=== PATIENT | male | born 1960 | race American Indian/Alaskan Native ===

== ENCOUNTER 2019-12-29 02:11 | Inpatient (IN) | payer BC, MEDICARE ==
--- NOTE | 2019-12-29 08:25 | History and Physical Report ---
GP History & Physical - History of Present Illness Date of admission: 12/29/19 Date of Examination: 12/29/19 Reason for Admission: Danger to self, Severe anxiety/depression History of Present Illness: HPI Patient is a 59-year-old with children, unemployed currently on disability income -[place] male who lives with and has past psychiatric history of MDD and bipolar and past medical history of hypertension diabetes and obstructive sleep apnea who was admitted to the facility due to major depression after a recent drug relapse. Patient reportedly has a history of drug use specifically cocaine and marijuana and has been drug-free for 3 years recently which has been controlled Arnielis started smoking marijuana and from there he was desiring for something stronger so he left home rented a hotel room so that he could use drugs in a private space and he just could not stop prompting him to call 911 requesting to be brought to the hospital for evaluation. Patient says he does not have any financial, marital major life stress issues that prompted him to start using drugs again but was mostly because he had been saving and has had a lot of money laying around that he did not know what to do with it. Now patient endorses feeling sad guilty and depressed about his actions with intermittent suicidal ideations but none at this moment and also denies auditory or visual hallucinations. PAST PSYCHIATRIC HISTORY: Diagnoses: MDD and bipolar Suicide attempts or Self-harm behavior: Yes Prior psychiatric hospitalizations yes Substance Abuse history: Cocaine and marijuana Previous psychiatric medications tried: Yes Outpatient treatment: None reported PAST MEDICAL HISTORY: Hypertension, diabetes and YONATHAN Family Psychiatric History: None reported or documented SOCIAL HISTORY Marital Status: Living Arrangements: With Employment Status: On SSI Access to guns/weapons: None reported Education: High school History of Abuse: None reported Legal History: None reported REVIEW OF SYSTEMS Constitutional: Negative for weight loss ENT: Negative for stridor Respiratory: Negative for cough or hemoptysis All other systems reviewed and are negative MENTAL STATUS EXAMINATION General Appearance and Behavior: Age appropriate, good hygiene, wearing appropriate clothes,, good eye contact Cooperation: Participating/engaged, but Guarded Psychomotor Behavior: Psychomotor normal Mood: depressed Affect and affective range: irritable, labile Thought Process: illogical Thought Content: denies, hopelessness, helplessness Speech: Normal rate, volume and rythm Intellectual Functioning: Average Suicidal Ideation: Denies Homicidal Ideation: Denies HI Impulse Control: Impaired Insight and Judgment: Limited insight and judgment Memory: Normal Attention: Normal Orientation: Alert, Diagnoses: Assessment and Plan - Psychiatric problem (1) Substance induced mood disorder Current Visit: Yes Status: Acute (2) Bipolar II disorder with melancholic features Current Visit: Yes Status: Acute Treatment Plan Patient admitted for inpatient psychiatric evaluation, medication adjustment and close monitoring The patient's behavior, mood, sleep and appetite will be closely monitored. Patient enrolled in individual and group therapeutic sessions and encouraged to attend. Patient provided with a safe and structured environment. Patient's physical health needs will be addressed by the Hospitalist. Hospitalist Consulted Labs including CBC, CMP, Lipid profile and Hemoglobin A1C levels ordered for baseline reference Social Assessment will be completed and the Demand Manager will work with patient and family to ensure a suitable and safe disposition Medication adjustment will be made as clinically indicated Usual Wellness Zoroastrian/Preservation: - Start Trazodone 50 mg po QHS & 50 mg po QHS PRN between 10 PM & 2 AM for insomnia - Start Melatonin 5 mg po QHS to promote circadian rhythm - Start Laurel-3 for brain health, reduce impulsivity, and as adjunctive treatment for mood disorder, continue upon discharge given overall benefits. - Start B1 prophylaxis with 200 mg po for 5 days The patient agreed on the treatment plan, understood the risk, benefit, alternative treatment, potential consequence of no treatment, and gave informed consent. Initial Certification Inpatient psych services: I certify that the inpatient psychiatric services are required for treatment that could reasonably be expected to improve the patient's condition. Estimated days: 7 Post hospital care: primary care provider, psychiatric provider Legal Status: Voluntary Patient Problems: Current Active Problems Bipolar II disorder with melancholic features (Acute) Substance induced mood disorder (Acute) Reaction to Hospitalization: Accepting Medications and Allergies Allergies Allergy/AdvReac Type Severity Reaction Status Date / Time risperidone [From Risperdal] AdvReac Severe Unknown Verified 12/29/19 02:21 Home Medications Medication Instructions Recorded Confirmed Last Taken Type AtorvaSTATin 10 mg PO DAILY 12/29/19 12/29/19 Unknown History Gabapentin 300 mg PO TID 12/29/19 12/29/19 Unknown History Glimepiride 1 mg PO AC 12/29/19 12/29/19 Unknown History Hydrocodone-Homatropine 5-1.5 7.5 - 325 mg PO Q6H PRN 12/29/19 12/29/19 Unknown History Losartan 25 mg PO DAILY 12/29/19 12/29/19 Unknown History Melatonin 10 mg PO HS 12/29/19 12/29/19 Unknown History Remeron 15mg TAB 15 mg PO DAILY 12/29/19 12/29/19 Unknown History Tadalafil 20 mg PO DAILY 12/29/19 12/29/19 Unknown History amLODIPine 10 mg PO DAILY 12/29/19 12/29/19 Unknown History metFORMIN 500 mg PO BID 12/29/19 12/29/19 Unknown History Results - Results Labs/Vitals: Laboratory Last Values POC Glucose 143 mg/dL (70-105) H 12/29/19 06:29 Last Vital Signs Temp 98.7 F 12/29/19 06:20 Pulse 78 12/29/19 06:20 Resp 18 12/29/19 06:20 BP 133/91 12/29/19 06:20 Pulse Ox 97 12/29/19 06:20 Physical Examination - Constitutional Vitals: Vital Signs Temp Pulse Resp BP Pulse Ox 98.7 F 78 18 133/91 97 12/29/19 06:20 12/29/19 06:20 12/29/19 06:20 12/29/19 06:20 12/29/19 06:20 Temperature -Last 24 Hours Temperature 98.7 F Mental Status Exam - Vital signs Last Vital Signs Temp 98.7 F 12/29/19 06:20 Pulse 78 12/29/19 06:20 Resp 18 12/29/19 06:20 BP 133/91 12/29/19 06:20 Pulse Ox 97 12/29/19 06:20 Assessment and Plan - Psychiatric problem (1) Substance induced mood disorder Current Visit: Yes Status: Acute (2) Bipolar II disorder with melancholic features Current Visit: Yes Status: Acute Physician Certification - Certification Statement Physician Certification Statement: This is an acknowledgement statement that ALEIDA SMITH is a 59 year old M who requires inpatient psychiatric admission for treatment which could reasonably be expected to improve the patient's condition for Estimated period of time patient will need to remain in the hospital: [ ] Plan for post-hospital care: [ ]
[2019-12-29] MEDS ORDERED: NON-FORMULARY EACH (Amlodipine 10 MG) PO SCH (10:00)
[2019-12-29] MEDS ORDERED: REMERON 15 MG PO SCH (10:00)
[2019-12-29 10:45] LABS: Basophils # (Auto) 0.1 K/mm3 (0.0-0.1); Basophils % (Auto) 2.2 % (0.0-1.8); Eosinophils % (Auto) 0.3 % (0.0-4.3); Hematocrit 36.8 % (35.5-45.6); Hemoglobin 12.1 gm/dl (11.8-15.2); Lymphocytes # (Auto) 1.7 K/mm3 (1.2-5.4); Lymphocytes % (Auto) 29.3 % (13.4-35.0); Mean Corpuscular HGB Conc 33 % (32-34); Mean Corpuscular Volume 78 fl (84-94); Monocytes # (Auto) 0.3 K/mm3 (0.0-0.8); Monocytes % (Auto) 5.6 % (0.0-7.3); Platelet Count 240 K/mm3 (140-440); Red Blood Count 4.72 M/mm3 (3.65-5.03); Red Cell Distribution Width 17.1 % (13.2-15.2)
[2019-12-29] MEDS: DULoxetine 30 MG CAP PO SCH (10:53)
[2019-12-29 10:58] LABS: BUN/Creatinine Ratio 14; Blood Urea Nitrogen 14 mg/dL (9-20); Calcium 9.2 mg/dL (8.4-10.2); Chol/HDL Ratio 2.31 %; HDL Cholesterol 63 mg/dL (40-59); Hemolysis Index 15; LDL Cholesterol,Direct 69 mg/dL (50-130)
[2019-12-29] MEDS ORDERED: MIRTAZAPINE 15 MG TAB PO SCH (11:00)
[2019-12-29] MEDS ORDERED: NON-FORMULARY EACH (Metformin 500 MG) PO SCH (14:48)
--- NOTE | 2019-12-29 14:51 | Consultation ---
History of Present Illness - Reason for Consult Consult date: 12/29/19 Medical management Requesting physician: JOAN BLACK - History of Present Illness 59 YO Male with Obesity Hypoventilation Syndrome, DM, HTN, YONATHAN, PSA, Bipolar Disorder admitted to [facility] for Psychiatric stabilization. Consult placed by Dr. Black for medical management. Patient seen and evaluated in the recreation room. Patient sitting in chair and resting comfortably. Patient de nies fever, chills, chest pain, palpitation, productive cough, skin rash, recent ill contact, or known exposure to COVID-19. Past History Past Medical History: diabetes, hypertension, other (See HPI) Past Surgical History: No surgical history, Other (Reviewed) Social history: , lives with family, other (Polysubstance abuse) Family history: diabetes, hypertension Medications and Allergies Allergies Allergy/AdvReac Type Severity Reaction Status Date / Time risperidone [From Risperdal] AdvReac Severe Unknown Verified 12/29/19 02:21 Home Medications Medication Instructions Recorded Confirmed Last Taken Type AtorvaSTATin 10 mg PO DAILY 12/29/19 12/29/19 Unknown History Gabapentin 300 mg PO TID 12/29/19 12/29/19 Unknown History Glimepiride 1 mg PO AC 12/29/19 12/29/19 Unknown History Hydrocodone-Homatropine 5-1.5 7.5 - 325 mg PO Q6H PRN 12/29/19 12/29/19 Unknown History Losartan 25 mg PO DAILY 12/29/19 12/29/19 Unknown History Melatonin 10 mg PO HS 12/29/19 12/29/19 Unknown History Remeron 15mg TAB 15 mg PO DAILY 12/29/19 12/29/19 Unknown History Tadalafil 20 mg PO DAILY 12/29/19 12/29/19 Unknown History amLODIPine 10 mg PO DAILY 12/29/19 12/29/19 Unknown History metFORMIN 500 mg PO BID 12/29/19 12/29/19 Unknown History Active Meds: Active Medications Duloxetine HCl (Cymbalta) 30 mg PO QDAY [facility] Last Admin: 12/29/19 10:53 Dose: 30 mg Documented by: Melatonin (Melatonin) 10 mg PO QHS [facility] Mirtazapine (Remeron) 15 mg PO HS [facility] Miscellaneous Medication (Amlodipine) 10 mg PO DAILY [facility] Miscellaneous Medication (Metformin) 500 mg PO BID [facility] Miscellaneous Medication (Losartan) 25 mg PO DAILY [facility] Miscellaneous Medication (Glimepiride) 1 mg PO AC [facility] Miscellaneous Medication (Gabapentin) 300 mg PO TID [facility] Miscellaneous Medication (Atorvastatin) 10 mg PO DAILY [facility] Review of Systems Constitutional: no weight loss, no weight gain, no fever, no chills Ears, nose, mouth and throat: no ear pain, no ear discharge, no tinnitis, no decreased hearing Respiratory: no cough, no cough with sputum, no hemoptysis, no shortness of breath, no dyspnea on exertion Gastrointestinal: no nausea, no vomiting, no diarrhea, no constipation Genitourinary Male: no hematuria, no flank pain, no discharge, no urinary frequency Rectal: no pain, no incontinence, no bleeding Musculoskeletal: no neck stiffness, no neck pain, no shooting leg pain, no leg numbness/tingling Integumentary: no rash, no pruritis, no redness, no sores, no wounds Neurological: no transient paralysis, no paralysis, no parathesias, no numbness, no tingling, no seizures, no tremors Psychiatric: suicidal ideation, depression Endocrine: no cold intolerance, no polyphagia, no polyuria Hematologic/Lymphatic: no easy bruising, no easy bleeding, no lymphedema Allergic/Immunologic: no urticaria, no angioedema Exam - Constitutional Vitals: Temp Pulse Resp BP Pulse Ox 98.3 F 71 18 128/77 98 12/29/19 07:23 12/29/19 07:23 12/29/19 07:23 12/29/19 07:23 12/29/19 07:23 General appearance: Present: no acute distress, obese - EENT Eyes: Present: PERRL ENT: hearing intact, clear oral mucosa - Neck Neck: Present: supple, normal ROM - Respiratory Respiratory effort: normal Respiratory: bilateral: CTA - Cardiovascular Heart Sounds: Present: S1 & S2. Absent: rub, click - Extremities Extremities: pulses symmetrical, No edema Peripheral Pulses: within normal limits - Abdominal General gastrointestinal: Present: soft, non-tender, non-distended, normal bowel sounds Male genitourinary: Present: normal - Integumentary Integumentary: Present: clear, warm, dry - Musculoskeletal Musculoskeletal: gait normal, strength equal bilaterally - Psychiatric Psychiatric: appropriate mood/affect, intact judgment & insight - Neurologic Neurologic: CNII-XII intact, moves all extremities Results - Labs CBC & Chem 7: 12/29/19 09:38 12/29/19 09:38 Labs: Abnormal lab results 12/29/19 12/29/19 12/29/19 Range/Units 06:29 09:38 09:38 MCV 78 L (84-94) fl MCH 26 L (28-32) pg RDW 17.1 H (13.2-15.2) % Baso % (Auto) 2.2 H (0.0-1.8) % Sodium 136 L (137-145) mmol/L Glucose 185 H (75-100) mg/dL POC Glucose 143 H (70-105) mg/dL Hemoglobin A1c (4-6) % HDL Cholesterol 63 H (40-59) mg/dL 12/29/19 12/29/19 Range/Units 09:38 11:58 MCV (84-94) fl MCH (28-32) pg RDW (13.2-15.2) % Baso % (Auto) (0.0-1.8) % Sodium (137-145) mmol/L Glucose (75-100) mg/dL POC Glucose 131 H (70-105) mg/dL Hemoglobin A1c 7.8 H (4-6) % HDL Cholesterol (40-59) mg/dL Assessment and Plan - Patient Problems (1) Hypertension Current Visit: Yes Status: Acute Qualifiers: Hypertension type: essential hypertension Qualified Code(s): I10 - Essential (primary) hypertension Plan to address problem: Monitor blood pressure every shift, continue medical management. (2) Diabetes Current Visit: Yes Status: Acute Plan to address problem: Consistent carbohydrate diet, oral antihyperglycemic therapy, supportive care, continue medical management. (3) Obesity hypoventilation syndrome Current Visit: Yes Status: Acute Plan to address problem: Balanced diet, increase physical activity at discharge, outpatient pulmonary part of follow-up for sleep study. (4) Bipolar II disorder with melancholic features Current Visit: Yes Status: Acute Plan to address problem: Continue medical management as per primary team (5) Substance induced mood disorder Current Visit: Yes Status: Acute Plan to address problem: Continue medical management as per primary team.
[2019-12-29] MEDS ORDERED: GLIMEPIRIDE 1 MG PO SCH (16:30)
[2019-12-29] MEDS: metFORMIN 500 MG TAB PO SCH (16:57)
[2019-12-29] MEDS ORDERED: NON-FORMULARY EACH (Gabapentin 300 MG) PO SCH (20:00)
[2019-12-29] MEDS: MELATONIN 5 MG TAB PO SCH (21:10)
[2019-12-29] MEDS: MIRTAZAPINE 15 MG TAB PO SCH (21:10)
[2019-12-29] MEDS: GABAPENTIN 300 MG CAP PO SCH (21:10)
[2019-12-29] MEDS ORDERED: NON-FORMULARY EACH (Melatonin 10 MG) PO SCH (22:00)
[2019-12-30] MEDS: GABAPENTIN 300 MG CAP PO SCH ×3 (06:22→21:21)
[2019-12-30] MEDS: metFORMIN 500 MG TAB PO SCH ×2 (08:10→17:32)
[2019-12-30] MEDS: GLIMEPIRIDE 2 MG TAB PO SCH (08:11)
--- NOTE | 2019-12-30 08:38 | Progress Note ---
Subjective Date of service: 12/30/19 Principal diagnosis: Bipolar II disorder with melancholic features Subjective Comment: Psych Nurse: Patient spent most of the evening in the activity room but he was asleep in the recliner. He presents as sad and depressed. He had no interaction with anyone. He did eat 100% of his snack and was medication compliant. Patient went to bed early. Will continue to monitor patient for safety. Psych Progress Patient reports sleeping well, says his appetite is getting better and today he describes his mood as "unbalanced" because he is having depressive episodes and then thinking about what would happen if he gets out of here because of how he has messed up his fiances and mismanaged it due to drug use. Reason for continuing inpatient hospitalization: Persistent mood disturbances and depression, patient says SI thoughts are intermittents at this time without any plan. REVIEW OF SYSTEMS Constitutional: Negative for weight loss ENT: Negative for stridor Respiratory: Negative for cough or hemoptysis All other systems reviewed and are negative MENTAL STATUS EXAMINATION General Appearance and Behavior: Age appropriate, good hygiene, wearing appropr iate clothes,, good eye contact Cooperation: Participating/engaged, but Guarded Psychomotor Behavior: Psychomotor normal Mood: depressed Affect and affective range: irritable, labile Thought Process: illogical Thought Content: denies, hopelessness, helplessness Speech: Normal rate, volume and rythm Intellectual Functioning: Average Suicidal Ideation: Intermittent SI Homicidal Ideation: Denies HI Impulse Control: Impaired Insight and Judgment: Limited insight and judgment Memory: Normal Attention: Normal Orientation: Alert, Diagnoses: Assessment and Plan - Psychiatric problem (1) Substance induced mood disorder Current Visit: Yes Status: Acute (2) Bipolar II disorder with melancholic features Current Visit: Yes Status: Acute Treatment Plan Home medications restarted. Patient admitted for inpatient psychiatric evaluation, medication adjustment and close monitoring The patient's behavior, mood, sleep and appetite will be closely monitored. Patient enrolled in individual and group therapeutic sessions and encouraged to attend. Patient provided with a safe and structured environment. Patient's physical health needs will be addressed by the Hospitalist. Hospitalist Consulted Labs including CBC, CMP, Lipid profile and Hemoglobin A1C levels ordered for baseline reference Social Assessment will be completed and the Strategic Planning Director will work with patient and family to ensure a suitable and safe disposition Medication adjustment will be made as clinically indicated Usual Wellness Adventism/Preservation: - Start Trazodone 50 mg po QHS & 50 mg po QHS PRN between 10 PM & 2 AM for insomnia - Start Melatonin 5 mg po QHS to promote circadian rhythm - Start [place]-3 for brain health, reduce impulsivity, and as adjunctive treatment for mood disorder, continue upon discharge given overall benefits. - Start B1 prophylaxis with 200 mg po for 5 days The patient agreed on the treatment plan, understood the risk, benefit, alternative treatment, potential consequence of no treatment, and gave informed consent. Initial Certification Inpatient psych services: I certify that the inpatient psychiatric services are required for treatment that could reasonably be expected to improve the patient's condition. Estimated days: 6 Post hospital care: primary care provider, psychiatric provider Assessment and Plan - Patient Problems (1) Substance induced mood disorder Current Visit: Yes Status: Acute (2) Bipolar II disorder with melancholic features Current Visit: Yes Status: Acute Medications and Allergies Allergies Allergy/AdvReac Type Severity Reaction Status Date / Time risperidone [From Risperdal] AdvReac Severe Unknown Verified 12/29/19 02:21 Home Medications Medication Instructions Recorded Confirmed Last Taken Type AtorvaSTATin 10 mg PO DAILY 12/29/19 12/29/19 Unknown History Gabapentin 300 mg PO TID 12/29/19 12/29/19 Unknown History Glimepiride 1 mg PO AC 12/29/19 12/29/19 Unknown History Hydrocodone-Homatropine 5-1.5 7.5 - 325 mg PO Q6H PRN 12/29/19 12/29/19 Unknown History Losartan 25 mg PO DAILY 12/29/19 12/29/19 Unknown History Melatonin 10 mg PO HS 12/29/19 12/29/19 Unknown History Remeron 15mg TAB 15 mg PO DAILY 12/29/19 12/29/19 Unknown History Tadalafil 20 mg PO DAILY 12/29/19 12/29/19 Unknown History amLODIPine 10 mg PO DAILY 12/29/19 12/29/19 Unknown History metFORMIN 500 mg PO BID 12/29/19 12/29/19 Unknown History Active Meds: Active Medications Amlodipine Besylate (Amlodipine) 10 mg PO DAILY [facility] Atorvastatin Calcium (Atorvastatin) 10 mg PO QHS [facility] Last Admin: 12/29/19 21:10 Dose: 10 mg Documented by: Duloxetine HCl (Cymbalta) 30 mg PO QDAY [facility] Last Admin: 12/29/19 10:53 Dose: 30 mg Documented by: Gabapentin (Gabapentin) 300 mg PO Q8HR [facility] Last Admin: 12/30/19 06:22 Dose: 300 mg Documented by: Glimepiride (Amaryl) 1 mg PO QDDIAB [facility] Losartan Potassium (Cozaar) 25 mg PO QDAY [facility] Melatonin (Melatonin) 10 mg PO QHS [facility] Last Admin: 12/29/19 21:10 Dose: 10 mg Documented by: Metformin HCl (Glucophage) 500 mg PO BIDDIAB [facility] Last Admin: 12/29/19 16:57 Dose: 500 mg Documented by: Mirtazapine (Remeron) 15 mg PO HS [facility] Last Admin: 12/29/19 21:10 Dose: 15 mg Documented by: Results - Results Labs/Vitals: Laboratory Last Values WBC 5.9 K/mm3 (4.5-11.0) 12/29/19 09:38 RBC 4.72 M/mm3 (3.65-5.03) 12/29/19 09:38 Hgb 12.1 gm/dl (11.8-15.2) 12/29/19 09:38 Hct 36.8 % (35.5-45.6) 12/29/19 09:38 MCV 78 fl (84-94) L 12/29/19 09:38 MCH 26 pg (28-32) L 12/29/19 09:38 MCHC 33 % (32-34) 12/29/19 09:38 RDW 17.1 % (13.2-15.2) H 12/29/19 09:38 Plt Count 240 K/mm3 (140-440) 12/29/19 09:38 Lymph % (Auto) 29.3 % (13.4-35.0) 12/29/19 09:38 Craig % (Auto) 5.6 % (0.0-7.3) 12/29/19 09:38 Eos % (Auto) 0.3 % (0.0-4.3) 12/29/19 09:38 Baso % (Auto) 2.2 % (0.0-1.8) H 12/29/19 09:38 Lymph # (Auto) 1.7 K/mm3 (1.2-5.4) 12/29/19 09:38 Craig # (Auto) 0.3 K/mm3 (0.0-0.8) 12/29/19 09:38 Eos # (Auto) 0.0 K/mm3 (0.0-0.4) 12/29/19 09:38 Baso # (Auto) 0.1 K/mm3 (0.0-0.1) 12/29/19 09:38 Seg Neutrophils % 62.6 % (40.0-70.0) 12/29/19 09:38 Seg Neutrophils # 3.7 K/mm3 (1.8-7.7) 12/29/19 09:38 Sodium 136 mmol/L (137-145) L 12/29/19 09:38 Potassium 4.2 mmol/L (3.6-5.0) 12/29/19 09:38 Chloride 99.7 mmol/L (98-107) 12/29/19 09:38 Carbon Dioxide 29 mmol/L (22-30) 12/29/19 09:38 Anion Gap 12 mmol/L 12/29/19 09:38 BUN 14 mg/dL (9-20) 12/29/19 09:38 Creatinine 1.0 mg/dL (0.8-1.3) 12/29/19 09:38 Estimated GFR > 60 ml/min 12/29/19 09:38 BUN/Creatinine Ratio 14 % 12/29/19 09:38 Glucose 185 mg/dL (75-100) H 12/29/19 09:38 POC Glucose 168 mg/dL (70-105) H 12/30/19 07:36 Hemoglobin A1c 7.8 % (4-6) H 12/29/19 09:38 Calcium 9.2 mg/dL (8.4-10.2) 12/29/19 09:38 Triglycerides 63 mg/dL (2-149) 12/29/19 09:38 Cholesterol 146 mg/dL (50-199) 12/29/19 09:38 LDL Cholesterol Direct 69 mg/dL (50-130) 12/29/19 09:38 HDL Cholesterol 63 mg/dL (40-59) H 12/29/19 09:38 Cholesterol/HDL Ratio 2.31 % 12/29/19 09:38 TSH 0.594 mlU/mL (0.270-4.200) 12/29/19 09:38 Last Vital Signs Temp 98.2 F 12/30/19 07:21 Pulse 70 12/30/19 07:21 Resp 18 12/30/19 07:21 BP 136/86 12/30/19 07:21 Pulse Ox 94 12/30/19 07:21
[2019-12-30] MEDS: amLODIPine 10 MG TAB PO SCH (09:33)
[2019-12-30] MEDS: DULoxetine 30 MG CAP PO SCH (09:33)
[2019-12-30] MEDS: LOSARTAN 25 MG TAB PO SCH (09:33)
[2019-12-30] MEDS ORDERED: NON-FORMULARY EACH (Atorvastatin 10 MG) PO SCH (10:00)
[2019-12-30] MEDS ORDERED: NON-FORMULARY EACH (Losartan 25 MG) PO SCH (10:00)
[2019-12-30 13:39] LABS: Bilirubin,Urine NEG (Negative); Blood,Urine SM (Negative); Color,Urine Yellow (Yellow); Mucus,Urine 3+ /HPF; Protein,Urine <15 mg/dL mg/dL (Negative)
[2019-12-30] MEDS: MELATONIN 5 MG TAB PO SCH (21:21)
[2019-12-30] MEDS: MIRTAZAPINE 15 MG TAB PO SCH (21:21)
[2019-12-31] MEDS: GABAPENTIN 300 MG CAP PO SCH ×3 (05:08→21:33)
--- NOTE | 2019-12-31 07:41 | Progress Note ---
Subjective Date of service: 12/31/19 Principal diagnosis: Bipolar II disorder with melancholic features Subjective Comment: Psych Nurse: Pt exhibited depressive mood prior to bedtime. Was observed sitting quietly with minimal interaction with peers or staff. Complies with tx regimens and accepted snacks as offered. Pt snores loudly during sleep, but rested w/o incident. Will continue to monitor for safety. Psych Progress Patient seen this AM. patient talked about his cancer treatment experience this AM and how he was grateful to be cancer free. Today patient says he feels better, appetite and sleep has been good so far, if not improved. Patient denies AVH, no suicidal or homicidal thoughts. He reports speaking with his , conversation has been good and she seems supportive so far. Reason for continuing inpatient hospitalization: Improved mood, continue to observe for stability and medication tolerance. . REVIEW OF SYSTEMS Constitutional: Negative for weight loss ENT: Negative for stridor Respiratory: Negative for cough or hemoptysis All other systems reviewed and are negative MENTAL STATUS EXAMINATION General Appearance and Behavior: Age appropriate, good hygiene, wearing appropriate clothes,, good eye contact Cooperation: Participating/engaged, but Guarded Psychomotor Behavior: Psychomotor normal Mood: depressed Affect and affective range: irritable, labile Thought Process: illogical Thought Content: denies, hopelessness, helplessness Speech: Normal rate, volume and rythm Intellectual Functioning: Average Suicidal Ideation: Intermittent SI Homicidal Ideation: Denies HI Impulse Control: Impaired Insight and Judgment: Limited insight and judgment Memory: Normal Attention: Normal Orientation: Alert, Diagnoses: Assessment and Plan - Psychiatric problem (1) Substance induced mood disorder Current Visit: Yes Status: Acute (2) Bipolar II disorder with melancholic features Current Visit: Yes Status: Acute Treatment Plan Home medications restarted. Patient admitted for inpatient psychiatric evaluation, medication adjustment and close monitoring The patient's behavior, mood, sleep and appetite will be closely monitored. Patient enrolled in individual and group therapeutic sessions and encouraged to attend. Patient provided with a safe and structured environment. Patient's physical health needs will be addressed by the Hospitalist. Hospit breezy Consulted Labs including CBC, CMP, Lipid profile and Hemoglobin A1C levels ordered for baseline reference Social Assessment will be completed and the Weed Cooking Operator will work with patient and family to ensure a suitable and safe disposition Medication adjustment will be made as clinically indicated Usual Wellness Catholic/Preservation: - Start Trazodone 50 mg po QHS & 50 mg po QHS PRN between 10 PM & 2 AM for insomnia - Start Melatonin 5 mg po QHS to promote circadian rhythm - Start Dows-3 for brain health, reduce impulsivity, and as adjunctive treatment for mood disorder, continue upon discharge given overall benefits. - Start B1 prophylaxis with 200 mg po for 5 days The patient agreed on the treatment plan, understood the risk, benefit, alternative treatment, potential consequence of no treatment, and gave informed consent. Initial Certification Inpatient psych services: I certify that the inpatient psychiatric services are required for treatment that could reasonably be expected to improve the patient's condition. Estimated days:5 Post hospital care: primary care provider, psychiatric provider Assessment and Plan - Patient Problems (1) Substance induced mood disorder Current Visit: Yes Status: Acute (2) Bipolar II disorder with melancholic features Current Visit: Yes Status: Acute Medications and Allergies Allergies Allergy/AdvReac Type Severity Reaction Status Date / Time risperidone [From Risperdal] AdvReac Severe Unknown Verified 12/29/19 02:21 Home Medications Medication Instructions Recorded Confirmed Last Taken Type AtorvaSTATin 10 mg PO DAILY 12/29/19 12/29/19 Unknown History Gabapentin 300 mg PO TID 12/29/19 12/29/19 Unknown History Glimepiride 1 mg PO AC 12/29/19 12/29/19 Unknown History Hydrocodone-Homatropine 5-1.5 7.5 - 325 mg PO Q6H PRN 12/29/19 12/29/19 Unknown History Losartan 25 mg PO DAILY 12/29/19 12/29/19 Unknown History Melatonin 10 mg PO HS 12/29/19 12/29/19 Unknown History Remeron 15mg TAB 15 mg PO DAILY 12/29/19 12/29/19 Unknown History Tadalafil 20 mg PO DAILY 12/29/19 12/29/19 Unknown History amLODIPine 10 mg PO DAILY 12/29/19 12/29/19 Unknown History metFORMIN 500 mg PO BID 12/29/19 12/29/19 Unknown History Active Meds: Active Medications Amlodipine Besylate (Amlodipine) 10 mg PO DAILY [facility] Last Admin: 12/30/19 09:33 Dose: 10 mg Documented by: Atorvastatin Calcium (Atorvastatin) 10 mg PO QHS [facility] Last Admin: 12/30/19 21:21 Dose: 10 mg Documented by: Duloxetine HCl (Cymbalta) 30 mg PO QDAY [facility] Last Admin: 12/30/19 09:33 Dose: 30 mg Documented by: Gabapentin (Gabapentin) 300 mg PO Q8HR [facility] Last Admin: 12/31/19 05:08 Dose: 300 mg Documented by: Glimepiride (Amaryl) 1 mg PO QDDIAB [facility] Last Admin: 12/30/19 08:11 Dose: 1 mg Documented by: Losartan Potassium (Cozaar) 25 mg PO QDAY [facility] Last Admin: 12/30/19 09:33 Dose: 25 mg Documented by: Melatonin (Melatonin) 10 mg PO QHS [facility] Last Admin: 12/30/19 21:21 Dose: 10 mg Documented by: Metformin HCl (Glucophage) 500 mg PO BIDDIAB [facility] Last Admin: 12/30/19 17:32 Dose: 500 mg Documented by: Mirtazapine (Remeron) 15 mg PO HS [facility] Last Admin: 12/30/19 21:21 Dose: 15 mg Documented by: Results - Results Labs/Vitals: Laboratory Last Values WBC 5.9 K/mm3 (4.5-11.0) 12/29/19 09:38 RBC 4.72 M/mm3 (3.65-5.03) 12/29/19 09:38 Hgb 12.1 gm/dl (11.8-15.2) 12/29/19 09:38 Hct 36.8 % (35.5-45.6) 12/29/19 09:38 MCV 78 fl (84-94) L 12/29/19 09:38 MCH 26 pg (28-32) L 12/29/19 09:38 MCHC 33 % (32-34) 12/29/19 09:38 RDW 17.1 % (13.2-15.2) H 12/29/19 09:38 Plt Count 240 K/mm3 (140-440) 12/29/19 09:38 Lymph % (Auto) 29.3 % (13.4-35.0) 12/29/19 09:38 [place] % (Auto) 5.6 % (0.0-7.3) 12/29/19 09:38 Eos % (Auto) 0.3 % (0.0-4.3) 12/29/19 09:38 Baso % (Auto) 2.2 % (0.0-1.8) H 12/29/19 09:38 Lymph # (Auto) 1.7 K/mm3 (1.2-5.4) 12/29/19 09:38 [place] # (Auto) 0.3 K/mm3 (0.0-0.8) 12/29/19 09:38 Eos # (Auto) 0.0 K/mm3 (0.0-0.4) 12/29/19 09:38 Baso # (Auto) 0.1 K/mm3 (0.0-0.1) 12/29/19 09:38 Seg Neutrophils % 62.6 % (40.0-70.0) 12/29/19 09:38 Seg Neutrophils # 3.7 K/mm3 (1.8-7.7) 12/29/19 09:38 Sodium 136 mmol/L (137-145) L 12/29/19 09:38 Potassium 4.2 mmol/L (3.6-5.0) 12/29/19 09:38 Chloride 99.7 mmol/L (98-107) 12/29/19 09:38 Carbon Dioxide 29 mmol/L (22-30) 12/29/19 09:38 Anion Gap 12 mmol/L 12/29/19 09:38 BUN 14 mg/dL (9-20) 12/29/19 09:38 Creatinine 1.0 mg/dL (0.8-1.3) 12/29/19 09:38 Estimated GFR > 60 ml/min 12/29/19 09:38 BUN/Creatinine Ratio 14 % 12/29/19 09:38 Glucose 185 mg/dL (75-100) H 12/29/19 09:38 POC Glucose 140 mg/dL (70-105) H 12/31/19 06:53 Hemoglobin A1c 7.8 % (4-6) H 12/29/19 09:38 Calcium 9.2 mg/dL (8.4-10.2) 12/29/19 09:38 Triglycerides 63 mg/dL (2-149) 12/29/19 09:38 Cholesterol 146 mg/dL (50-199) 12/29/19 09:38 LDL Cholesterol Direct 69 mg/dL (50-130) 12/29/19 09:38 HDL Cholesterol 63 mg/dL (40-59) H 12/29/19 09:38 Cholesterol/HDL Ratio 2.31 % 12/29/19 09:38 TSH 0.594 mlU/mL (0.270-4.200) 12/29/19 09:38 Urine Color Yellow (Yellow) 12/30/19 Unknown Urine Turbidity Clear (Clear) 12/30/19 Unknown Urine pH 5.0 (5.0-7.0) 12/30/19 Unknown Ur Specific [place] 1.025 (1.003-1.030) 12/30/19 Unknown Urine Protein <15 mg/dl mg/dL (Negative) 12/30/19 Unknown Urine Glucose (UA) 50 mg/dL (Negative) 12/30/19 Unknown Urine Ketones Neg mg/dL (Negative) 12/30/19 Unknown Urine Blood Sm (Negative) 12/30/19 Unknown Urine Nitrite Neg (Negative) 12/30/19 Unknown Urine Bilirubin Neg (Negative) 12/30/19 Unknown Urine Urobilinogen 2.0 mg/dL (<2.0) 12/30/19 Unknown Ur Leukocyte Esterase Neg (Negative) 12/30/19 Unknown Urine WBC (Auto) 2.0 /HPF (0.0-6.0) 12/30/19 Unknown Urine RBC (Auto) 3.0 /HPF (0.0-6.0) 12/30/19 Unknown U Epithel Cells (Auto) < 1.0 /HPF (0-13.0) 12/30/19 Unknown Urine Mucus 3+ /HPF 12/30/19 Unknown Last Vital Signs Temp 98.2 F 12/30/19 07:21 Pulse 70 12/30/19 07:21 Resp 18 12/30/19 07:21 BP 136/86 12/30/19 07:21 Pulse Ox 94 12/30/19 07:21
[2019-12-31] MEDS: LOSARTAN 25 MG TAB PO SCH (09:58)
[2019-12-31] MEDS: DULoxetine 30 MG CAP PO SCH (09:58)
[2019-12-31] MEDS: metFORMIN 500 MG TAB PO SCH ×2 (09:58→16:43)
[2019-12-31] MEDS: GLIMEPIRIDE 2 MG TAB PO SCH (09:59)
[2019-12-31] MEDS: amLODIPine 10 MG TAB PO SCH (10:00)
--- NOTE | 2019-12-31 11:08 | Progress Note ---
Assessment and Plan - Patient Problems (1) Hypertension Current Visit: Yes Status: Acute Qualifiers: Hypertension type: essential hypertension Qualified Code(s): I10 - Essential (primary) hypertension Plan to address problem: Monitor blood pressure every shift, continue medical management. (2) Diabetes Current Visit: Yes Status: Acute Plan to address problem: Consistent carbohydrate diet, oral antihyperglycemic therapy, supportive care, continue medical management. (3) Obesity hypoventilation syndrome Current Visit: Yes Status: Acute Plan to address problem: Balanced diet, increase physical activity at discharge, outpatient pulmonary part of follow-up for sleep study. (4) Bipolar II disorder with melancholic features Current Visit: Yes Status: Acute Plan to address problem: Continue medical management as per primary team (5) Substance induced mood disorder Current Visit: Yes Status: Acute Plan to address problem: Continue medical management as per primary team. History Interval history: 59 YO Male with Obesity Hypoventilation Syndrome, DM, HTN, YONATHAN, PSA, Bipolar Disorder admitted to [facility] for Psychiatric stabilization. Patient seen and evaluated in the recreation room. Patient sitting in chair and resting comfortably. Patient cooperative with exam and review. No reported nursing events. Hospitalist Physical - Constitutional Vitals: Temp Pulse Resp BP Pulse Ox 98.4 F 74 18 126/71 98 12/31/19 08:33 12/31/19 10:00 12/31/19 08:33 12/31/19 10:00 12/31/19 08:33 General appearance: Present: no acute distress, obese - EENT Eyes: Present: PERRL, EOM intact ENT: hearing intact - Neck Neck: Present: supple - Respiratory Respiratory effort: normal Respiratory: bilateral: CTA - Cardiovascular Rhythm: regular - Extremities Extremities: no ischemia Peripheral Pulses: within normal limits - Abdominal General gastrointestinal: soft, non-tender, non-distended - Integumentary Integumentary: Present: clear, dry - Psychiatric Psychiatric: cooperative - Neurologic Neurologic: CNII-XII intact Results - Labs CBC & Chem 7: 12/29/19 09:38 12/29/19 09:38 Labs: Laboratory Last Values WBC 5.9 K/mm3 (4.5-11.0) 12/29/19 09:38 RBC 4.72 M/mm3 (3.65-5.03) 12/29/19 09:38 Hgb 12.1 gm/dl (11.8-15.2) 12/29/19 09:38 Hct 36.8 % (35.5-45.6) 12/29/19 09:38 MCV 78 fl (84-94) L 12/29/19 09:38 MCH 26 pg (28-32) L 12/29/19 09:38 MCHC 33 % (32-34) 12/29/19 09:38 RDW 17.1 % (13.2-15.2) H 12/29/19 09:38 Plt Count 240 K/mm3 (140-440) 12/29/19 09:38 Lymph % (Auto) 29.3 % (13.4-35.0) 12/29/19 09:38 [place] % (Auto) 5.6 % (0.0-7.3) 12/29/19 09:38 Eos % (Auto) 0.3 % (0.0-4.3) 12/29/19 09:38 Baso % (Auto) 2.2 % (0.0-1.8) H 12/29/19 09:38 Lymph # (Auto) 1.7 K/mm3 (1.2-5.4) 12/29/19 09:38 [place] # (Auto) 0.3 K/mm3 (0.0-0.8) 12/29/19 09:38 Eos # (Auto) 0.0 K/mm3 (0.0-0.4) 12/29/19 09:38 Baso # (Auto) 0.1 K/mm3 (0.0-0.1) 12/29/19 09:38 Seg Neutrophils % 62.6 % (40.0-70.0) 12/29/19 09:38 Seg Neutrophils # 3.7 K/mm3 (1.8-7.7) 12/29/19 09:38 Sodium 136 mmol/L (137-145) L 12/29/19 09:38 Potassium 4.2 mmol/L (3.6-5.0) 12/29/19 09:38 Chloride 99.7 mmol/L (98-107) 12/29/19 09:38 Carbon Dioxide 29 mmol/L (22-30) 12/29/19 09:38 Anion Gap 12 mmol/L 12/29/19 09:38 BUN 14 mg/dL (9-20) 12/29/19 09:38 Creatinine 1.0 mg/dL (0.8-1.3) 12/29/19 09:38 Estimated GFR > 60 ml/min 12/29/19 09:38 BUN/Creatinine Ratio 14 % 12/29/19 09:38 Glucose 185 mg/dL (75-100) H 12/29/19 09:38 POC Glucose 140 mg/dL (70-105) H 12/31/19 06:53 Hemoglobin A1c 7.8 % (4-6) H 12/29/19 09:38 Calcium 9.2 mg/dL (8.4-10.2) 12/29/19 09:38 Triglycerides 63 mg/dL (2-149) 12/29/19 09:38 Cholesterol 146 mg/dL (50-199) 12/29/19 09:38 LDL Cholesterol Direct 69 mg/dL (50-130) 12/29/19 09:38 HDL Cholesterol 63 mg/dL (40-59) H 12/29/19 09:38 Cholesterol/HDL Ratio 2.31 % 12/29/19 09:38 TSH 0.594 mlU/mL (0.270-4.200) 12/29/19 09:38 Urine Color Yellow (Yellow) 12/30/19 Unknown Urine Turbidity Clear (Clear) 12/30/19 Unknown Urine pH 5.0 (5.0-7.0) 12/30/19 Unknown Ur Specific [place] 1.025 (1.003-1.030) 12/30/19 Unknown Urine Protein <15 mg/dl mg/dL (Negative) 12/30/19 Unknown Urine Glucose (UA) 50 mg/dL (Negative) 12/30/19 Unknown Urine Ketones Neg mg/dL (Negative) 12/30/19 Unknown Urine Blood Sm (Negative) 12/30/19 Unknown Urine Nitrite Neg (Negative) 12/30/19 Unknown Urine Bilirubin Neg (Negative) 12/30/19 Unknown Urine Urobilinogen 2.0 mg/dL (<2.0) 12/30/19 Unknown Ur Leukocyte Esterase Neg (Negative) 12/30/19 Unknown Urine WBC (Auto) 2.0 /HPF (0.0-6.0) 12/30/19 Unknown Urine RBC (Auto) 3.0 /HPF (0.0-6.0) 12/30/19 Unknown U Epithel Cells (Auto) < 1.0 /HPF (0-13.0) 12/30/19 Unknown Urine Mucus 3+ /HPF 12/30/19 Unknown Bain/IV: Voiding Method Toilet Active Medications - Current Medications Current Medications: Generic Name Dose Route Start Last Admin Trade Name Freq PRN Reason Stop Dose Admin Amlodipine Besylate 10 mg 12/30/19 10:00 12/31/19 10:00 Amlodipine PO 10 mg DAILY [facility] Administration Atorvastatin Calcium 10 mg 12/29/19 22:00 12/30/19 21:21 Atorvastatin PO 10 mg QHS [facility] Administration Duloxetine HCl 30 mg 12/29/19 10:00 12/31/19 09:58 Cymbalta PO 30 mg QDAY [facility] Administration Gabapentin 300 mg 12/29/19 22:00 12/31/19 05:08 Gabapentin PO 300 mg Q8HR [facility] Administration Glimepiride 1 mg 12/30/19 08:00 12/31/19 09:59 Amaryl PO 1 mg QDDIAB [facility] Administration Losartan Potassium 25 mg 12/30/19 10:00 12/31/19 09:58 Cozaar PO 25 mg QDAY [facility] Administration Melatonin 10 mg 12/29/19 22:00 12/30/19 21:21 Melatonin PO 10 mg QHS [facility] Administration Metformin HCl 500 mg 12/29/19 17:00 12/31/19 09:58 Glucophage PO 500 mg BIDDIAB [facility] Administration Mirtazapine 15 mg 12/29/19 22:00 12/30/19 21:21 Remeron PO 15 mg HS [facility] Administration
--- NOTE | 2019-12-31 21:16 | Progress Note ---
Assessment and Plan - Patient Problems (1) Hypertension Current Visit: Yes Status: Acute Qualifiers: Hypertension type: essential hypertension Qualified Code(s): I10 - Essential (primary) hypertension Plan to address problem: Monitor blood pressure every shift, continue medical management. (2) Diabetes Current Visit: Yes Status: Acute Plan to address problem: Consistent carbohydrate diet, oral antihyperglycemic therapy, supportive care, continue medical management. (3) Obesity hypoventilation syndrome Current Visit: Yes Status: Acute Plan to address problem: Balanced diet, increase physical activity at discharge, outpatient pulmonary part of follow-up for sleep study. (4) Bipolar II disorder with melancholic features Current Visit: Yes Status: Acute Plan to address problem: Continue medical management as per primary team (5) Substance induced mood disorder Current Visit: Yes Status: Acute Plan to address problem: Continue medical management as per primary team. History Interval history: 59 YO Male with Obesity Hypoventilation Syndrome, DM, HTN, YONATHAN, PSA, Bipolar Disorder admitted to [facility] for Psychiatric stabilization. Patient seen and evaluated in the recreation room. Patient sitting in chair and resting comfortably. Patient cooperative with exam and review. No reported nursing events. Hospitalist Physical - Constitutional Vitals: Temp Pulse Resp BP Pulse Ox 98.4 F 74 18 126/71 98 12/31/19 08:33 12/31/19 10:00 12/31/19 08:33 12/31/19 10:00 12/31/19 08:33 General appearance: Present: no acute distress, obese - EENT Eyes: Present: PERRL, EOM intact ENT: hearing intact - Neck Neck: Present: supple - Respiratory Respiratory effort: normal Respiratory: bilateral: CTA - Cardiovascular Rhythm: regular Heart Sounds: Present: S1 & S2 - Extremities Extremities: no ischemia Peripheral Pulses: within normal limits - Abdominal General gastrointestinal: soft, non-tender, non-distended - Integumentary Integumentary: Present: clear, dry - Psychiatric Psychiatric: cooperative - Neurologic Neurologic: CNII-XII intact Results - Labs CBC & Chem 7: 12/29/19 09:38 12/29/19 09:38 Labs: Laboratory Last Values WBC 5.9 K/mm3 (4.5-11.0) 12/29/19 09:38 RBC 4.72 M/mm3 (3.65-5.03) 12/29/19 09:38 Hgb 12.1 gm/dl (11.8-15.2) 12/29/19 09:38 Hct 36.8 % (35.5-45.6) 12/29/19 09:38 MCV 78 fl (84-94) L 12/29/19 09:38 MCH 26 pg (28-32) L 12/29/19 09:38 MCHC 33 % (32-34) 12/29/19 09:38 RDW 17.1 % (13.2-15.2) H 12/29/19 09:38 Plt Count 240 K/mm3 (140-440) 12/29/19 09:38 Lymph % (Auto) 29.3 % (13.4-35.0) 12/29/19 09:38 [place] % (Auto) 5.6 % (0.0-7.3) 12/29/19 09:38 Eos % (Auto) 0.3 % (0.0-4.3) 12/29/19 09:38 Baso % (Auto) 2.2 % (0.0-1.8) H 12/29/19 09:38 Lymph # (Auto) 1.7 K/mm3 (1.2-5.4) 12/29/19 09:38 [place] # (Auto) 0.3 K/mm3 (0.0-0.8) 12/29/19 09:38 Eos # (Auto) 0.0 K/mm3 (0.0-0.4) 12/29/19 09:38 Baso # (Auto) 0.1 K/mm3 (0.0-0.1) 12/29/19 09:38 Seg Neutrophils % 62.6 % (40.0-70.0) 12/29/19 09:38 Seg Neutrophils # 3.7 K/mm3 (1.8-7.7) 12/29/19 09:38 Sodium 136 mmol/L (137-145) L 12/29/19 09:38 Potassium 4.2 mmol/L (3.6-5.0) 12/29/19 09:38 Chloride 99.7 mmol/L (98-107) 12/29/19 09:38 Carbon Dioxide 29 mmol/L (22-30) 12/29/19 09:38 Anion Gap 12 mmol/L 12/29/19 09:38 BUN 14 mg/dL (9-20) 12/29/19 09:38 Creatinine 1.0 mg/dL (0.8-1.3) 12/29/19 09:38 Estimated GFR > 60 ml/min 12/29/19 09:38 BUN/Creatinine Ratio 14 % 12/29/19 09:38 Glucose 185 mg/dL (75-100) H 12/29/19 09:38 POC Glucose 86 mg/dL (70-105) 12/31/19 16:38 Hemoglobin A1c 7.8 % (4-6) H 12/29/19 09:38 Calcium 9.2 mg/dL (8.4-10.2) 12/29/19 09:38 Triglycerides 63 mg/dL (2-149) 12/29/19 09:38 Cholesterol 146 mg/dL (50-199) 12/29/19 09:38 LDL Cholesterol Direct 69 mg/dL (50-130) 12/29/19 09:38 HDL Cholesterol 63 mg/dL (40-59) H 12/29/19 09:38 Cholesterol/HDL Ratio 2.31 % 12/29/19 09:38 TSH 0.594 mlU/mL (0.270-4.200) 12/29/19 09:38 Urine Color Yellow (Yellow) 12/30/19 Unknown Urine Turbidity Clear (Clear) 12/30/19 Unknown Urine pH 5.0 (5.0-7.0) 12/30/19 Unknown Ur Specific [place] 1.025 (1.003-1.030) 12/30/19 Unknown Urine Protein <15 mg/dl mg/dL (Negative) 12/30/19 Unknown Urine Glucose (UA) 50 mg/dL (Negative) 12/30/19 Unknown Urine Ketones Neg mg/dL (Negative) 12/30/19 Unknown Urine Blood Sm (Negative) 12/30/19 Unknown Urine Nitrite Neg (Negative) 12/30/19 Unknown Urine Bilirubin Neg (Negative) 12/30/19 Unknown Urine Urobilinogen 2.0 mg/dL (<2.0) 12/30/19 Unknown Ur Leukocyte Esterase Neg (Negative) 12/30/19 Unknown Urine WBC (Auto) 2.0 /HPF (0.0-6.0) 12/30/19 Unknown Urine RBC (Auto) 3.0 /HPF (0.0-6.0) 12/30/19 Unknown U Epithel Cells (Auto) < 1.0 /HPF (0-13.0) 12/30/19 Unknown Urine Mucus 3+ /HPF 12/30/19 Unknown Bain/IV: Voiding Method Toilet Active Medications - Current Medications Current Medications: Generic Name Dose Route Start Last Admin Trade Name Freq PRN Reason Stop Dose Admin Amlodipine Besylate 10 mg 12/30/19 10:00 12/31/19 10:00 Amlodipine PO 10 mg DAILY [facility] Administration Atorvastatin Calcium 10 mg 12/29/19 22:00 12/30/19 21:21 Atorvastatin PO 10 mg QHS [facility] Administration Duloxetine HCl 30 mg 12/29/19 10:00 12/31/19 09:58 Cymbalta PO 30 mg QDAY [facility] Administration Gabapentin 300 mg 12/29/19 22:00 12/31/19 14:03 Gabapentin PO 300 mg Q8HR [facility] Administration Glimepiride 1 mg 12/30/19 08:00 12/31/19 09:59 Amaryl PO 1 mg QDDIAB [facility] Administration Losartan Potassium 25 mg 12/30/19 10:00 12/31/19 09:58 Cozaar PO 25 mg QDAY [facility] Administration Melatonin 10 mg 12/29/19 22:00 12/30/19 21:21 Melatonin PO 10 mg QHS [facility] Administration Metformin HCl 500 mg 12/29/19 17:00 12/31/19 16:43 Glucophage PO 500 mg BIDDIAB [facility] Administration Mirtazapine 15 mg 12/29/19 22:00 12/30/19 21:21 Remeron PO 15 mg HS [facility] Administration
[2019-12-31] MEDS: MIRTAZAPINE 15 MG TAB PO SCH (21:33)
[2019-12-31] MEDS: MELATONIN 5 MG TAB PO SCH (21:33)
[2020-01-01] MEDS: GABAPENTIN 300 MG CAP PO SCH ×3 (06:27→21:23)
--- NOTE | 2020-01-01 08:59 | Progress Note ---
Subjective Date of service: 01/01/20 Principal diagnosis: Bipolar II disorder with melancholic features Subjective Comment: Psych Nurse: pt spent the evening in activity room interacting and socializing with peers, bright affect, stable mood, neat, appropriate on the unit, pt is magen rt and orientedx3. calm and cooperative, able to make needs known, medication compliant, good appetite, denies si/hi, denies a/v/h, pt sleeping with CPAP machine on, no complaint voiced, no distress noted, will continue to monitor for safety. Psych Progress Patient seen this AM. Patient reported finally slept better than he normally used to after he got his CPAP machine yesterday. Patient denies any nightmares, intrusive abnormal thought disorders, denies having any illicit drug use cravings, denies any auditory or visual hallucinations endorses good appetite and mood stability. Patient denies SI or HI. Reason for continuing inpatient hospitalization: Improved mood, plan for discharge on . REVIEW OF SYSTEMS Constitutional: Negative for weight loss ENT: Negative for stridor Respiratory: Negative for cough or hemoptysis All other systems reviewed and are negative MENTAL STATUS EXAMINATION General Appearance and Behavior: Age appropriate, good hygiene, wearing appropriate clothes,, good eye contact Cooperation: Participating/engaged, but Guarded Psychomotor Behavior: Psychomotor normal Mood: "feels better" Affect and affective range: congruent with mood Thought Process: logical Thought Content: logical within reality Speech: Normal rate, volume and rythm Intellectual Functioning: Average Suicidal Ideation: denies SI Homicidal Ideation: Denies HI Impulse Control: unimpaired Insight and Judgment: Improved insight and judgment Memory: Normal Attention: Normal Orientation: Alert, oriented Diagnoses: Assessment and Plan - Psychiatric problem (1) Substance induced mood disorder Current Visit: Yes Status: Acute (2) Bipolar II disorder with melancholic features Current Visit: Yes Status: Acute Treatment Plan Home medications restarted. Patient admitted for inpatient psychiatric evaluation, medication adjustment and close monitoring The patient's behavior, mood, sleep and appetite will be closely monitored. Patient enrolled in individual and group therapeutic sessions and encouraged to attend. Patient provided with a safe and structured environment. Patient's physical health needs will be addressed by the Hospitalist. Hospitalist Consulted Labs including CBC, CMP, Lipid profile and Hemoglobin A1C levels ordered for baseline reference Social Assessment will be completed and the Test Desk Trouble Locator will work with patient and family to ensure a suitable and safe disposition Medication adjustment will be made as clinically indicated Usual Wellness Yazidi/Preservation: - Start Trazodone 50 mg po QHS & 50 mg po QHS PRN between 10 PM & 2 AM for insomnia - Start Melatonin 5 mg po QHS to promote circadian rhythm - Start [place]-3 for brain health, reduce impulsivity, and as adjunctive treatment for mood disorder, continue upon discharge given overall benefits. - Start B1 prophylaxis with 200 mg po for 5 days The patient agreed on the treatment plan, understood the risk, benefit, alternative treatment, potential consequence of no treatment, and gave informed consent. Initial Certification Inpatient psych services: I certify that the inpatient psychiatric services are required for treatment that could reasonably be expected to improve the patient's condition. Estimated days:4 Post hospital care: primary care provider, psychiatric provider Assessment and Plan - Patient Problems (1) Substance induced mood disorder Current Visit: Yes Status: Acute (2) Bipolar II disorder with melancholic features Current Visit: Yes Status: Acute Medications and Allergies Allergies Allergy/AdvReac Type Severity Reaction Status Date / Time risperidone [From Risperdal] AdvReac Severe Unknown Verified 12/29/19 02:21 Home Medications Medication Instructions Recorded Confirmed Last Taken Type AtorvaSTATin 10 mg PO DAILY 12/29/19 12/29/19 Unknown History Gabapentin 300 mg PO TID 12/29/19 12/29/19 Unknown History Glimepiride 1 mg PO AC 12/29/19 12/29/19 Unknown History Hydrocodone-Homatropine 5-1.5 7.5 - 325 mg PO Q6H PRN 12/29/19 12/29/19 Unknown History Losartan 25 mg PO DAILY 12/29/19 12/29/19 Unknown History Melatonin 10 mg PO HS 12/29/19 12/29/19 Unknown History Remeron 15mg TAB 15 mg PO DAILY 12/29/19 12/29/19 Unknown History Tadalafil 20 mg PO DAILY 12/29/19 12/29/19 Unknown History amLODIPine 10 mg PO DAILY 12/29/19 12/29/19 Unknown History metFORMIN 500 mg PO BID 12/29/19 12/29/19 Unknown History Active Meds: Active Medications Amlodipine Besylate (Amlodipine) 10 mg PO DAILY [facility] Last Admin: 12/31/19 10:00 Dose: 10 mg Documented by: Atorvastatin Calcium (Atorvastatin) 10 mg PO QHS [facility] Last Admin: 12/31/19 21:33 Dose: 10 mg Documented by: Duloxetine HCl (Cymbalta) 30 mg PO QDAY [facility] Last Admin: 12/31/19 09:58 Dose: 30 mg Documented by: Gabapentin (Gabapentin) 300 mg PO Q8HR [facility] Last Admin: 01/01/20 06:27 Dose: 300 mg Documented by: Glimepiride (Amaryl) 1 mg PO QDDIAB [facility] Last Admin: 12/31/19 09:59 Dose: 1 mg Documented by: Losartan Potassium (Cozaar) 25 mg PO QDAY [facility] Last Admin: 12/31/19 09:58 Dose: 25 mg Documented by: Melatonin (Melatonin) 10 mg PO QHS [facility] Last Admin: 12/31/19 21:33 Dose: 10 mg Documented by: Metformin HCl (Glucophage) 500 mg PO BIDDIAB [facility] Last Admin: 12/31/19 16:43 Dose: 500 mg Documented by: Mirtazapine (Remeron) 15 mg PO HS [facility] Last Admin: 12/31/19 21:33 Dose: 15 mg Documented by: Results - Results Labs/Vitals: Laboratory Last Values WBC 5.9 K/mm3 (4.5-11.0) 12/29/19 09:38 RBC 4.72 M/mm3 (3.65-5.03) 12/29/19 09:38 Hgb 12.1 gm/dl (11.8-15.2) 12/29/19 09:38 Hct 36.8 % (35.5-45.6) 12/29/19 09:38 MCV 78 fl (84-94) L 12/29/19 09:38 MCH 26 pg (28-32) L 12/29/19 09:38 MCHC 33 % (32-34) 12/29/19 09:38 RDW 17.1 % (13.2-15.2) H 12/29/19 09:38 Plt Count 240 K/mm3 (140-440) 12/29/19 09:38 Lymph % (Auto) 29.3 % (13.4-35.0) 12/29/19 09:38 [place] % (Auto) 5.6 % (0.0-7.3) 12/29/19 09:38 Eos % (Auto) 0.3 % (0.0-4.3) 12/29/19 09:38 Baso % (Auto) 2.2 % (0.0-1.8) H 12/29/19 09:38 Lymph # (Auto) 1.7 K/mm3 (1.2-5.4) 12/29/19 09:38 [place] # (Auto) 0.3 K/mm3 (0.0-0.8) 12/29/19 09:38 Eos # (Auto) 0.0 K/mm3 (0.0-0.4) 12/29/19 09:38 Baso # (Auto) 0.1 K/mm3 (0.0-0.1) 12/29/19 09:38 Seg Neutrophils % 62.6 % (40.0-70.0) 12/29/19 09:38 Seg Neutrophils # 3.7 K/mm3 (1.8-7.7) 12/29/19 09:38 Sodium 136 mmol/L (137-145) L 12/29/19 09:38 Potassium 4.2 mmol/L (3.6-5.0) 12/29/19 09:38 Chloride 99.7 mmol/L (98-107) 12/29/19 09:38 Carbon Dioxide 29 mmol/L (22-30) 12/29/19 09:38 Anion Gap 12 mmol/L 12/29/19 09:38 BUN 14 mg/dL (9-20) 12/29/19 09:38 Creatinine 1.0 mg/dL (0.8-1.3) 12/29/19 09:38 Estimated GFR > 60 ml/min 12/29/19 09:38 BUN/Creatinine Ratio 14 % 12/29/19 09:38 Glucose 185 mg/dL (75-100) H 12/29/19 09:38 POC Glucose 132 mg/dL (70-105) H 01/01/20 06:52 Hemoglobin A1c 7.8 % (4-6) H 12/29/19 09:38 Calcium 9.2 mg/dL (8.4-10.2) 12/29/19 09:38 Triglycerides 63 mg/dL (2-149) 12/29/19 09:38 Cholesterol 146 mg/dL (50-199) 12/29/19 09:38 LDL Cholesterol Direct 69 mg/dL (50-130) 12/29/19 09:38 HDL Cholesterol 63 mg/dL (40-59) H 12/29/19 09:38 Cholesterol/HDL Ratio 2.31 % 12/29/19 09:38 TSH 0.594 mlU/mL (0.270-4.200) 12/29/19 09:38 Urine Color Yellow (Yellow) 12/30/19 Unknown Urine Turbidity Clear (Clear) 12/30/19 Unknown Urine pH 5.0 (5.0-7.0) 12/30/19 Unknown Ur Specific [place] 1.025 (1.003-1.030) 12/30/19 Unknown Urine Protein <15 mg/dl mg/dL (Negative) 12/30/19 Unknown Urine Glucose (UA) 50 mg/dL (Negative) 12/30/19 Unknown Urine Ketones Neg mg/dL (Negative) 12/30/19 Unknown Urine Blood Sm (Negative) 12/30/19 Unknown Urine Nitrite Neg (Negative) 12/30/19 Unknown Urine Bilirubin Neg (Negative) 12/30/19 Unknown Urine Urobilinogen 2.0 mg/dL (<2.0) 12/30/19 Unknown Ur Leukocyte Esterase Neg (Negative) 12/30/19 Unknown Urine WBC (Auto) 2.0 /HPF (0.0-6.0) 12/30/19 Unknown Urine RBC (Auto) 3.0 /HPF (0.0-6.0) 12/30/19 Unknown U Epithel Cells (Auto) < 1.0 /HPF (0-13.0) 12/30/19 Unknown Urine Mucus 3+ /HPF 12/30/19 Unknown Last Vital Signs Temp 98.4 F 12/31/19 08:33 Pulse 74 12/31/19 10:00 Resp 18 12/31/19 08:33 BP 126/71 12/31/19 10:00 Pulse Ox 97 12/31/19 22:35
[2020-01-01] MEDS: metFORMIN 500 MG TAB PO SCH ×2 (09:18→18:27)
[2020-01-01] MEDS: DULoxetine 30 MG CAP PO SCH (09:18)
[2020-01-01] MEDS: amLODIPine 10 MG TAB PO SCH (10:20)
[2020-01-01] MEDS: GLIMEPIRIDE 2 MG TAB PO SCH (10:21)
[2020-01-01] MEDS: LOSARTAN 25 MG TAB PO SCH (10:23)
[2020-01-01] MEDS: MELATONIN 5 MG TAB PO SCH (21:23)
[2020-01-01] MEDS: MIRTAZAPINE 15 MG TAB PO SCH (21:24)
[2020-01-02] MEDS: GABAPENTIN 300 MG CAP PO SCH ×2 (06:24→13:25)
--- NOTE | 2020-01-02 07:51 | Progress Note ---
Subjective Date of service: 01/02/20 Principal diagnosis: Bipolar II disorder with melancholic features Subjective Comment: Psych Nurse: Pt is a/o x 4 mood and affect is appropriate. He interacts with staff on approach and denies any thoughts of SI. Pt is neat and appropriately dressed and attends to his ADLs without prompting. He is compliant with routine meds and no prns given. Appetite good and no complaints of pain. Pt in bed with cpap in place. Will continue to monitor q 15 min for safety. pt was present for full duration of group. initially pt received redirection from campaign marketing specialist aeb pt arguing with peer about snack time and group time. pt was ready for group to begin but peer wanted snack. pt was cooperative when redirected, but first needed to take a walk. when pt returned, pt was active and attentive. when he found a matching pair. pt cheered, smiled, and showed peers. Psych Progress Patient describes a good and stable mood, denies being depressed or excessively nervous. Patient eats and sleeps well. Patient denies panic attacks, recurrent nightmares or flashbacks. Patient denies symptoms suggestive of OCD or PTSD. Patient denies hallucinations, paranoia, thought interference and no features suggestive of hypomania or tesha. She completely denies suicidal or homicidal thoughts. Patient states states that he knows his discharge was being planned for tomorrow, request to be discharged today because he has some things to take care of, he states he would like to straighten out his checking account, and is aware he needs to stop being alone and get into a day program which would like to get started on. Reason for continuing inpatient hospitalization: Improved mood, plan for discharge on . REVIEW OF SYSTEMS Constitutional: Negative for weight loss ENT: Negative for stridor Respiratory: Negative for cough or hemoptysis All other systems reviewed and are negative MENTAL STATUS EXAMINATION General Appearance and Behavior: Age appropriate, good hygiene, wearing appropriate clothes,, good eye contact Cooperation: Participating/engaged, but Guarded Psychomotor Behavior: Psychomotor normal Mood: "feels better" Affect and affective range: congruent with mood Thought Process: logical Thought Content: logical within reality Speech: Normal rate, volume and rythm Intellectual Functioning: Average Suicidal Ideation: denies SI Homicidal Ideation: Denies HI Impulse Control: unimpaired Insight and Judgment: Improved insight and judgment Memory: Normal Attention: Normal Orientation: Alert, oriented Diagnoses: Assessment and Plan - Psychiatric problem (1) Substance induced mood disorder Current Visit: Yes Status: Acute (2) Bipolar II disorder with melancholic features Current Visit: Yes Status: Acute Treatment Plan Home medications restarted. Patient admitted for inpatient psychiatric evaluation, medication adjustment and close monitoring The patient's behavior, mood, sleep and appetite will be closely monitored. Patient enrolled in individual and group therapeutic sessions and encouraged to attend. Patient provided with a safe and structured environment. Patient's physical health needs will be addressed by the Hospitalist. Hospitalist Consulted Labs including CBC, CMP, Lipid profile and Hemoglobin A1C levels ordered for baseline reference Social Assessment will be completed and the Computer Numerical Control Machinist will work with patient and family to ensure a suitable and safe disposition Medication adjustment will be made as clinically indicated Usual Wellness Restorationism/Preservation: - Start Trazodone 50 mg po QHS & 50 mg po QHS PRN between 10 PM & 2 AM for insomnia - Start Melatonin 5 mg po QHS to promote circadian rhythm - Start [place]-3 for brain health, reduce impulsivity, and as adjunctive treatment for mood disorder, continue upon discharge given overall benefits. - Start B1 prophylaxis with 200 mg po for 5 days The patient agreed on the treatment plan, understood the risk, benefit, alternative treatment, potential consequence of no treatment, and gave informed consent. Initial Certification Inpatient psych services: I certify that the inpatient psychiatric services are required for treatment that could reasonably be expected to improve the patient's condition. Estimated days:3 Post hospital care: primary care provider, psychiatric provider Assessment and Plan - Patient Problems (1) Substance induced mood disorder Current Visit: Yes Status: Acute (2) Bipolar II disorder with melancholic features Current Visit: Yes Status: Acute Medications and Allergies Allergies Allergy/AdvReac Type Severity Reaction Status Date / Time risperidone [From Risperdal] AdvReac Severe Unknown Verified 12/29/19 02:21 Home Medications Medication Instructions Recorded Confirmed Last Taken Type AtorvaSTATin 10 mg PO DAILY 12/29/19 12/29/19 Unknown History Gabapentin 300 mg PO TID 12/29/19 12/29/19 Unknown History Glimepiride 1 mg PO AC 12/29/19 12/29/19 Unknown History Hydrocodone-Homatropine 5-1.5 7.5 - 325 mg PO Q6H PRN 12/29/19 12/29/19 Unknown History Losartan 25 mg PO DAILY 12/29/19 12/29/19 Unknown History Melatonin 10 mg PO HS 12/29/19 12/29/19 Unknown History Remeron 15mg TAB 15 mg PO DAILY 12/29/19 12/29/19 Unknown History Tadalafil 20 mg PO DAILY 12/29/19 12/29/19 Unknown History amLODIPine 10 mg PO DAILY 12/29/19 12/29/19 Unknown History metFORMIN 500 mg PO BID 12/29/19 12/29/19 Unknown History Active Meds: Active Medications Amlodipine Besylate (Amlodipine) 10 mg PO DAILY [facility] Last Admin: 01/01/20 10:20 Dose: 10 mg Documented by: Atorvastatin Calcium (Atorvastatin) 10 mg PO QHS [facility] Last Admin: 01/01/20 21:23 Dose: 10 mg Documented by: Duloxetine HCl (Cymbalta) 30 mg PO QDAY [facility] Last Admin: 01/01/20 09:18 Dose: 30 mg Documented by: Gabapentin (Gabapentin) 300 mg PO Q8HR [facility] Last Admin: 01/02/20 06:24 Dose: 300 mg Documented by: Glimepiride (Amaryl) 1 mg PO QDDIAB [facility] Last Admin: 01/01/20 10:21 Dose: 1 mg Documented by: Losartan Potassium (Cozaar) 25 mg PO QDAY [facility] Last Admin: 01/01/20 10:23 Dose: 25 mg Documented by: Melatonin (Melatonin) 10 mg PO QHS [facility] Last Admin: 01/01/20 21:23 Dose: 10 mg Documented by: Metformin HCl (Glucophage) 500 mg PO BIDDIAB [facility] Last Admin: 01/01/20 18:27 Dose: 500 mg Documented by: Mirtazapine (Remeron) 15 mg PO [facility] Last Admin: 01/01/20 21:24 Dose: 15 mg Documented by: Results - Results Labs/Vitals: Laboratory Last Values WBC 5.9 K/mm3 (4.5-11.0) 12/29/19 09:38 RBC 4.72 M/mm3 (3.65-5.03) 12/29/19 09:38 Hgb 12.1 gm/dl (11.8-15.2) 12/29/19 09:38 Hct 36.8 % (35.5-45.6) 12/29/19 09:38 MCV 78 fl (84-94) L 12/29/19 09:38 MCH 26 pg (28-32) L 12/29/19 09:38 MCHC 33 % (32-34) 12/29/19 09:38 RDW 17.1 % (13.2-15.2) H 12/29/19 09:38 Plt Count 240 K/mm3 (140-440) 12/29/19 09:38 Lymph % (Auto) 29.3 % (13.4-35.0) 12/29/19 09:38 [place] % (Auto) 5.6 % (0.0-7.3) 12/29/19 09:38 Eos % (Auto) 0.3 % (0.0-4.3) 12/29/19 09:38 Baso % (Auto) 2.2 % (0.0-1.8) H 12/29/19 09:38 Lymph # (Auto) 1.7 K/mm3 (1.2-5.4) 12/29/19 09:38 [place] # (Auto) 0.3 K/mm3 (0.0-0.8) 12/29/19 09:38 Eos # (Auto) 0.0 K/mm3 (0.0-0.4) 12/29/19 09:38 Baso # (Auto) 0.1 K/mm3 (0.0-0.1) 12/29/19 09:38 Seg Neutrophils % 62.6 % (40.0-70.0) 12/29/19 09:38 Seg Neutrophils # 3.7 K/mm3 (1.8-7.7) 12/29/19 09:38 Sodium 136 mmol/L (137-145) L 12/29/19 09:38 Potassium 4.2 mmol/L (3.6-5.0) 12/29/19 09:38 Chloride 99.7 mmol/L (98-107) 12/29/19 09:38 Carbon Dioxide 29 mmol/L (22-30) 12/29/19 09:38 Anion Gap 12 mmol/L 12/29/19 09:38 BUN 14 mg/dL (9-20) 12/29/19 09:38 Creatinine 1.0 mg/dL (0.8-1.3) 12/29/19 09:38 Estimated GFR > 60 ml/min 12/29/19 09:38 BUN/Creatinine Ratio 14 % 12/29/19 09:38 Glucose 185 mg/dL (75-100) H 12/29/19 09:38 POC Glucose 134 mg/dL (70-105) H 01/02/20 06:54 Hemoglobin A1c 7.8 % (4-6) H 12/29/19 09:38 Calcium 9.2 mg/dL (8.4-10.2) 12/29/19 09:38 Triglycerides 63 mg/dL (2-149) 12/29/19 09:38 Cholesterol 146 mg/dL (50-199) 12/29/19 09:38 LDL Cholesterol Direct 69 mg/dL (50-130) 12/29/19 09:38 HDL Cholesterol 63 mg/dL (40-59) H 12/29/19 09:38 Cholesterol/HDL Ratio 2.31 % 12/29/19 09:38 TSH 0.594 mlU/mL (0.270-4.200) 12/29/19 09:38 Urine Color Yellow (Yellow) 12/30/19 Unknown Urine Turbidity Clear (Clear) 12/30/19 Unknown Urine pH 5.0 (5.0-7.0) 12/30/19 Unknown Ur Specific [place] 1.025 (1.003-1.030) 12/30/19 Unknown Urine Protein <15 mg/dl mg/dL (Negative) 12/30/19 Unknown Urine Glucose (UA) 50 mg/dL (Negative) 12/30/19 Unknown Urine Ketones Neg mg/dL (Negative) 12/30/19 Unknown Urine Blood Sm (Negative) 12/30/19 Unknown Urine Nitrite Neg (Negative) 12/30/19 Unknown Urine Bilirubin Neg (Negative) 12/30/19 Unknown Urine Urobilinogen 2.0 mg/dL (<2.0) 12/30/19 Unknown Ur Leukocyte Esterase Neg (Negative) 12/30/19 Unknown Urine WBC (Auto) 2.0 /HPF (0.0-6.0) 12/30/19 Unknown Urine RBC (Auto) 3.0 /HPF (0.0-6.0) 12/30/19 Unknown U Epithel Cells (Auto) < 1.0 /HPF (0-13.0) 12/30/19 Unknown Urine Mucus 3+ /HPF 12/30/19 Unknown Last Vital Signs Temp 97.8 F 01/01/20 05:58 Pulse 66 01/01/20 10:23 Resp 17 01/01/20 05:58 BP 138/81 01/01/20 10:23 Pulse Ox 98 01/01/20 21:39
--- NOTE | 2020-01-02 09:20 | Discharge Summary ---
Providers - Providers Date of Admission: 12/29/19 05:35 Date of discharge: 01/02/20 Attending physician: JOAN BLACK MD 12/30/19 09:00 Consult to Physician [CONS] Routine Comment: Consulting Provider: PRISICLLA SHERWOOD Physician Instructions: Reason For Exam: H&P and Medical Mgmt Primary care physician: DIE FINISHER Hospitalization Reason for admission: Danger to self Condition: Good Hospital course: The patient was provided inpatient psychiatric treatment with safe and supportive environment, group/individual therapy, psychiatric medication, medication adjustment, adverse effect monitor, medical evaluation, medical treatment, social service assessment, social support meeting, placement assessm ent and psycho-education. The patients mood, cognition, behavior, motivation, compliance to treatment and appreciation on family/social support are improved and stabilized. At the time of discharge, the patient had no suicidal ideas, no homicidal ideas, no aggressive thoughts, no endangering behavior and no debilitating adverse effects. The patient agareed on the treatment plan, understood the risk, benefit, alternative treatment, potential consequence of no treatment, and gave informed consent. Disposition: DC-01 TO HOME OR SELFCARE Allergies/Adverse Reactions: Allergies risperidone [From Risperdal] Adverse Reaction (Severe, Verified 12/29/19 02:21) Unknown Priapism Vital Signs: Last Vital Signs Temp 97.8 F 01/01/20 05:58 Pulse 66 01/01/20 10:23 Resp 17 01/01/20 05:58 BP 138/81 01/01/20 10:23 Pulse Ox 98 01/01/20 21:39 Last Lab: Laboratory Last Values WBC 5.9 K/mm3 (4.5-11.0) 12/29/19 09:38 RBC 4.72 M/mm3 (3.65-5.03) 12/29/19 09:38 Hgb 12.1 gm/dl (11.8-15.2) 12/29/19 09:38 Hct 36.8 % (35.5-45.6) 12/29/19 09:38 MCV 78 fl (84-94) L 12/29/19 09:38 MCH 26 pg (28-32) L 12/29/19 09:38 MCHC 33 % (32-34) 12/29/19 09:38 RDW 17.1 % (13.2-15.2) H 12/29/19 09:38 Plt Count 240 K/mm3 (140-440) 12/29/19 09:38 Lymph % (Auto) 29.3 % (13.4-35.0) 12/29/19 09:38 [place] % (Auto) 5.6 % (0.0-7.3) 12/29/19 09:38 Eos % (Auto) 0.3 % (0.0-4.3) 12/29/19 09:38 Baso % (Auto) 2.2 % (0.0-1.8) H 12/29/19 09:38 Lymph # (Auto) 1.7 K/mm3 (1.2-5.4) 12/29/19 09:38 [place] # (Auto) 0.3 K/mm3 (0.0-0.8) 12/29/19 09:38 Eos # (Auto) 0.0 K/mm3 (0.0-0.4) 12/29/19 09:38 Baso # (Auto) 0.1 K/mm3 (0.0-0.1) 12/29/19 09:38 Seg Neutrophils % 62.6 % (40.0-70.0) 12/29/19 09:38 Seg Neutrophils # 3.7 K/mm3 (1.8-7.7) 12/29/19 09:38 Sodium 136 mmol/L (137-145) L 12/29/19 09:38 Potassium 4.2 mmol/L (3.6-5.0) 12/29/19 09:38 Chloride 99.7 mmol/L (98-107) 12/29/19 09:38 Carbon Dioxide 29 mmol/L (22-30) 12/29/19 09:38 Anion Gap 12 mmol/L 12/29/19 09:38 BUN 14 mg/dL (9-20) 12/29/19 09:38 Creatinine 1.0 mg/dL (0.8-1.3) 12/29/19 09:38 Estimated GFR > 60 ml/min 12/29/19 09:38 BUN/Creatinine Ratio 14 % 12/29/19 09:38 Glucose 185 mg/dL (75-100) H 12/29/19 09:38 POC Glucose 134 mg/dL (70-105) H 01/02/20 06:54 Hemoglobin A1c 7.8 % (4-6) H 12/29/19 09:38 Calcium 9.2 mg/dL (8.4-10.2) 12/29/19 09:38 Triglycerides 63 mg/dL (2-149) 12/29/19 09:38 Cholesterol 146 mg/dL (50-199) 12/29/19 09:38 LDL Cholesterol Direct 69 mg/dL (50-130) 12/29/19 09:38 HDL Cholesterol 63 mg/dL (40-59) H 12/29/19 09:38 Cholesterol/HDL Ratio 2.31 % 12/29/19 09:38 TSH 0.594 mlU/mL (0.270-4.200) 12/29/19 09:38 Urine Color Yellow (Yellow) 12/30/19 Unknown Urine Turbidity Clear (Clear) 12/30/19 Unknown Urine pH 5.0 (5.0-7.0) 12/30/19 Unknown Ur Specific [place] 1.025 (1.003-1.030) 12/30/19 Unknown Urine Protein <15 mg/dl mg/dL (Negative) 12/30/19 Unknown Urine Glucose (UA) 50 mg/dL (Negative) 12/30/19 Unknown Urine Ketones Neg mg/dL (Negative) 12/30/19 Unknown Urine Blood Sm (Negative) 12/30/19 Unknown Urine Nitrite Neg (Negative) 12/30/19 Unknown Urine Bilirubin Neg (Negative) 12/30/19 Unknown Urine Urobilinogen 2.0 mg/dL (<2.0) 12/30/19 Unknown Ur Leukocyte Esterase Neg (Negative) 12/30/19 Unknown Urine WBC (Auto) 2.0 /HPF (0.0-6.0) 12/30/19 Unknown Urine RBC (Auto) 3.0 /HPF (0.0-6.0) 12/30/19 Unknown U Epithel Cells (Auto) < 1.0 /HPF (0-13.0) 12/30/19 Unknown Urine Mucus 3+ /HPF 12/30/19 Unknown - Discharge Diagnoses (1) Substance induced mood disorder Status: Acute (2) Bipolar II disorder with melancholic features Status: Acute Core Measure Documentation - Palliative Care Palliative Care/ Comfort Measures: Not Applicable - Core Measures Any of the following diagnoses?: none Exam - Constitutional Vitals: Temp Pulse Resp BP Pulse Ox 97.8 F 66 17 138/81 98 01/01/20 05:58 01/01/20 10:23 01/01/20 05:58 01/01/20 10:23 01/01/20 21:39 General appearance: Present: no acute distress - EENT Eyes: Present: PERRL, EOM intact ENT: hearing intact, clear oral mucosa - Neck Neck: Present: supple, normal ROM - Respiratory Respiratory effort: normal - Abdominal General gastrointestinal: Present: deferred Male genitourinary: Present: deferred - Integumentary Integumentary: Present: clear, warm, dry Plan Activity: no restrictions Care Plan Goals: Goals: Maintain good and stable mental health. Plan of Treatment: The patient should be compliant with medications, not to use drugs and not to drink alcohol. The patient understands that if suicidal ideas, homicidal ideas, or any endangering thoughts arise, the patient should immediately seek for emergent assistance including but not limited to crisis hot line and emergency room. Follow up with outpatient Psychiatrist and PCP within 7 - 14 days of discharge. Follow up with: PRIMARY CARE, [Primary Care Provider] - 7 Days Prescriptions: DULoxetine [Cymbalta] 30 mg PO QDAY #30 capsule Gabapentin 300 mg PO TID #90 Mirtazapine [Remeron 15mg TAB] 15 mg PO HS #30 tablet
[2020-01-02] MEDS: DULoxetine 30 MG CAP PO SCH (10:09)
[2020-01-02] MEDS: amLODIPine 10 MG TAB PO SCH (10:09)
[2020-01-02] MEDS: LOSARTAN 25 MG TAB PO SCH (10:10)
[2020-01-02] MEDS: GLIMEPIRIDE 2 MG TAB PO SCH (10:11)
[2020-01-02] MEDS: metFORMIN 500 MG TAB PO SCH (10:11)
[2020-01-02 10:13] VITALS: BP 121/64
== END 2020-01-02 16:05 | disposition home or self-care (01) | DRG 885 ==
LOC: UNDOADMIN 02:11 → 3A 02:11 → 5A 05:35
PROVIDERS: ADMIT Psychiatry & Neurology Psychiatry; ATTEND Psychiatry & Neurology Psychiatry
DX: F31.81 Bipolar II disorder (principal); Z68.41 Body mass index [BMI] 40.0-44.9, adult; E66.2 Morbid (severe) obesity with alveolar hypoventilation; Z56.0 Unemployment, unspecified; I10 Essential (primary) hypertension; E11.9 Type 2 diabetes mellitus without complications; F14.90 Cocaine use, unspecified, uncomplicated; F12.90 Cannabis use, unspecified, uncomplicated; F19.94 Other psychoactive substance use, unspecified with psychoactive substance-induced mood disorder; Z88.8 Allergy status to other drugs, medicaments and biological substances; Z79.899 Other long term (current) drug therapy; Z79.84 Long term (current) use of oral hypoglycemic drugs; Z82.49 Family history of ischemic heart disease and other diseases of the circulatory system; Z83.3 Family history of diabetes mellitus
CPT/HCPCS: 36415; 80048; 80061; 81001; 82962; 83036; 84443; 85025; G0378; A9270-GY